=== PATIENT | male | born 1970 | race Caucasian/White ===

== ENCOUNTER 2019-04-28 07:31 | Emergency (ER) | payer SELFPAY ==
[~2019-04-28] VITALS: Ht 175.3 cm; Wt 77.1 kg
[2019-04-28] MEDS ORDERED: PRED20TA PO (07:43)
--- NOTE | 2019-04-28 07:44 | PHYS DOC ---
Past Medical History Past Medical History: No Pertinent History Additional Past Surgical Histo: left arm abscess Smoking: Cigarettes Alcohol Use: Sober Drug Use: None Adult General Chief Complaint Chief Complaint: OTHER COMPLAINTS HPI HPI 48-year-old male presents with report of bee stings to bilateral wrists. Patient reports occurred just prior to arrival. 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 Patient reports sensation of "burning all over ". Patient also reports some throat tightness. Family concern for some facial swelling. Denies tongue swelling or inability to swallow saliva. Reports his had prior bee stings without difficulty. Patient reports these were yellow and black bees but does not think they were honeybees. Reports she was stung multiple times and they will kept attacking him. Review of Systems Review of Systems Constitutional: Denies fever or chills Eyes: Denies redness or eye pain HENT: Denies nasal congestion; reports throat tightness Respiratory: Denies cough; reports some shortness of breath Cardiovascular: Denies chest pain or palpitations GI: Denies abdominal pain, nausea, or vomiting : Denies dysuria or hematuria Musculoskeletal: Denies back pain or joint pain Integument: Reports swelling to wrists at sites of bee stings Neurologic: Denies headache, focal weakness or sensory changes Complete systems were reviewed and found to be within normal limits, except as d ocumented in this note. Current Medications Current Medications Current Medications Medications (Trade) Dose Ordered Sig/Truman Start Time Stop Time Status Last Admin Dose Admin Dexamethasone (Decadron) 10 mg 1X ONCE 04/28/19 07:45 04/28/19 07:46 DC Diphenhydramine HCl (Benadryl) 50 mg 1X ONCE 04/28/19 08:15 04/28/19 08:16 Famotidine (Pepcid) 20 mg 1X ONCE 04/28/19 08:00 04/28/19 08:01 Allergies Allergies Allergies Coded Allergies Type Severity Reaction Last Updated Verified No Known Drug Allergies 04/28/19 No Physical Exam Physical Exam Constitutional: Well developed, well nourished, anxious, non-toxic appearance HENT: Normocephalic, atraumatic, oropharynx moist, tongue without swelling Eyes: Conjunctiva normal, no discharge Neck: Normal range of motion, no tenderness, supple Cardiovascular: Heart rate normal, regular rhythm Lungs & Thorax: Bilateral breath sounds clear to auscultation, no wheezing, no stridor Skin: Warm, dry, no erythema, bilateral LE with macular rash which appears poison sherrell dermatitis Extremities: No tenderness, ROM intact, mild edema to bilateral dorsal hands/wrists Neurologic: Alert and oriented X 3, no focal deficits noted Psychologic: Affect anxious, judgement normal Current Patient Data Vital Signs Vital Signs Date Time Temp Pulse Resp B/P (MAP) Pulse Ox O2 Delivery O2 Flow Rate FiO2 04/28/19 07:42 98.8 117 16 104/61 (75) 95 Room Air 98.8 EKG EKG [] Radiology/Procedures Radiology/Procedures [] Course & Med Decision Making Course & Med Decision Making Patient presents with report of bee stings to bilateral wrists which occurred just prior to arrival. Patient was concerned due to some swelling and sensation of throat tightness. Patient reports throat tightness has since improved. Denies any tongue swelling. No stridor or respiratory distress appreciated. Sats stable. Symptomatic treatment provided with oral steroid, Benadryl, and Pepcid. Patient stable for discharge with outpatient follow-up with PCP. Discussed findings and plan with patient and family, who acknowledge understanding and agreement. Dragon Disclaimer Dragon Disclaimer This electronic medical record was generated, in whole or in part, using a voice recognition dictation system. Departure Departure Impression: Primary Impression: Bee sting Disposition: 01 HOME, SELF-CARE Condition: STABLE Patient Instructions: Bee, Wasp, or Hornet Sting Additional Instructions: Clean wound daily with soap and water. May use over the counter antibiotic benadryl to help with itching and inflammatory response. May also use over the counter antibiotic ointment to area. Scripts Famotidine (PEPCID) 20 Mg Tablet 20 MG PO BID, #10 TAB Prov: GARRETT MANSFIELD DO 04/28/19 Prednisone (PREDNISONE) 20 Mg Tablet 2 TAB PO DAILY, #8 TAB Start this prescription tomorrow, 04/29/19 Prov: GARRETT MANSFIELD DO 04/28/19 Problem Qualifiers Primary Impression: Bee sting Encounter type: initial encounter Injury intent: undetermined intent Q ualified Codes: T63.444A - Toxic effect of venom of bees, undetermined, initial encounter GARRETT MANSFIELD DO Apr 28, 2019 07:44
[2019-04-28] MEDS ORDERED: DEXAMETHASONE 4 MG TABLET PO ONE (07:45)
[2019-04-28] MEDS ORDERED: FAMO-63 PO (07:50)
[2019-04-28] MEDS ORDERED: FAMOTIDINE 20 MG TABLET. PO ONE (08:00)
[2019-04-28 08:11] VITALS: BP 100/60
[2019-04-28] MEDS ORDERED: diphenhydrAMINE HCL 25 MG CAPSULE PO ONE (08:15)
== END 2019-04-28 08:22 | disposition home or self-care (01) ==
LOC: ER 07:31
DX: T63.444A Toxic effect of venom of bees, undetermined, initial encounter (principal); F17.210 Nicotine dependence, cigarettes, uncomplicated; Y92.89 Other specified places as the place of occurrence of the external cause
CPT/HCPCS: 99284; J8540; Q0163